=== PATIENT | female | born 1955 | race Caucasian/White ===

== ENCOUNTER 2016-07-15 03:01 | Inpatient (IN) | payer OTHER, MEDICARE ==
[~2016-07-15] VITALS: Ht 167.6 cm; Wt 105.7 kg
[~2016-07-15 03:01] MED LIST: ADDERALL 10 MG10 MG PO; ADDERALL XR 3030 MG PO; COZAAR50 M1 PO; DEXILANT60 M1 PO; DILAUDID2 M1 PO; KLONOPIN0.5 M1 PO; SYNTHROID137 MCG PO; TOPROL XL50 M1 PO; VITAMIN D33000 UNIT PO; WELLBUTRIN SR150 M1 PO; WELLBUTRIN XL300 M2 PO
--- NOTE | 2016-07-15 12:44 | Patient Discharge Instructions ---
Discharge Instructions General Discharge Information You were seen/treated for: Left knee pain You had these procedures: 07/15/16 left total knee arthroplasty Watch for these problems: Redness, swelling, fever, signs of infection. Uncontrolled pain, Excessive bleeding. Decreased range of motion or unable to bear weight. Chest pain, shortness of breath. Call Surgeon to remove: Jaden Do not soak the wound: Yes No bath, but you may shower: Yes Other wound care: Daily dry dressing changes or as needed Diet Continue normal diet: Yes Activity Activity Self Limited: Yes Activity Limited to: Weight bear as tolerated Additional ACTIVITY Info: Daily physical therapy Acute Coronary Syndrome Inclusion Criteria At DC or during hospital stay patient has or had the following: ACS DIAGNOSIS No Discharge Core Measures Meds if any: Prescribed or Continued at Discharge Meds if any: NOT Prescribed or Continued at Discharge Congestive Heart Failure Inclusion Criteria At DC or during hospital stay patient has or had the following: CHF DIAGNOSIS No Discharge Core Measures Meds if any: Prescribed or Continued at Discharge Meds if any: NOT Prescribed or Continued at Discharge Cerebrovascular accident Inclusion Criteria At DC or during hospital stay patient has or had the following: CVA/TIA Diagnosis No Discharge Core Measures Meds if any: Prescribed or Continued at Discharge Meds if any: NOT Prescribed or Continued at Discharge Venous thromboembolism Inclusion Criteria VTE Diagnosis No VTE Type NONE VTE Confirmed by (Test) NONE Discharge Core Measures - Per Current guidelines, there needs to be overlap - treatment for the first 5 days of Warfarin therapy. - If discharged on Warfarin prior to 5 days of - overlap therapy, the patient will need to be - assessed for post discharge needs including - *Post discharge parental anticoagulation - *Warfarin and/or parental anticoagulation education - *Follow up date to check INR post discharge At least 5 days overlap therapy as Inpatient No Meds if any: Prescribed or Continued at Discharge Note: Overlap Therapy is Warfarin and Anticoagulant Meds if any: NOT Prescribed or Continued at Discharge
[2016-07-15] MEDS ORDERED: DILAUDID4 M1 PO (13:00)
[2016-07-15] MEDS ORDERED: MIRALAX17 G1 PO (13:00)
[2016-07-15] MEDS ORDERED: COLACE100 M1 PO (13:00)
[2016-07-15] MEDS ORDERED: ASPIRIN325 M2 PO (13:00)
[2016-07-15] MEDS ORDERED: MORPHINE SULFAT15 M3 PO (13:00)
--- NOTE | 2016-07-15 13:01 | Discharge Summary ---
See Addendum Visit Information Visit Dates Admission Date: 07/15/16 Discharge Date: 07/18/16 Hospital Course Course Attending Physician: ALTAF FRANK MD Primary Care Physician: DAINEL MARTIN MD Hospital Course: Patient admitted to floor following procedure below. Patient ambulated with PT upon arrival to the floor. Patient continued to progress well. Upon discharge patient is afebrile, tolerating diet, pain controlled, ambulating well with rolling walker and PT. Complications: None Allergies: Coded Allergies: ampicillin (Severe, ANAPHYLAXIS 07/10/16) scallops (? 07/10/16) Significant Procedures: 07/15/16 left total knee arthroplasty Disposition Summary Disposition Principal Diagnosis: Left knee pain, secondary to primary unilateral left knee osteoarthritis Additional Diagnosis: None Discharge Disposition: home health services Discharge Instructions General Discharge Information Code Status: Full Code Patient's Diet: Resume normal diet Patient's Activity: Weight-bearing as tolerated Daily physical therapy Follow-Up Instructions/Appts: Call office to schedule/confirm appointment Follow-up with Dr. Frank in 6 weeks. Call the office with any concerns of fever greater than 101.5. Large amounts of discharge or drainage from the wound or inability to bear weight on your operative side. The visiting nurse will remove your sutures/jeremiah in approximately 2 weeks' time if applicable You may weight-bear as tolerated. Activity as tolerated. Range of motion as tolerated. Do not put pillows behind the knee, use a pillow under the heel to ensure your are in full knee extension. Keep the dressing dry as possible, you may shower with the dressing in place however, do not take a bath or submerge the wound in water as this will increase your chance of infection. Change the dressings after the shower. You may use dry gauze and tape or large Band-Aids Do not apply any ointments to the wound. Due to a risk of blood clots you'll need to be on aspirin 325 mg twice a day for the next 4 weeks. Take pain medication as directed. Apply ice as needed for 20 minutes every hour for the first few days. Please take Colace and/or MiraLAX [id number] to avoid constipation while you're on narcotic pain medication. Medications at Discharge Discharge Medications: Stop taking the following medications: Hydromorphone HCl (Dilaudid) 2 MG TABLET ORAL 4 times daily as needed Continue taking these medications: Bupropion HCl (Wellbutrin XL) 300 MG TAB.ER.24H 1 Tablet ORAL Every Morning Bupropion HCl (Wellbutrin Sr) 150 MG TABLET.ER 1 Tablet ORAL DAILY Instructions: PART OF 450 MG DOSE Clonazepam (Klonopin) 0.5 MG TABLET 1 Tablet ORAL 2 x Daily as needed as needed for PTSD Dextroamphetamine/Amphetamine (Adderall XR 30 MG Capsule) 30 MG CAP.ER.24H 1 Capsule ORAL Every Morning Dextroamphetamine/Amphetamine (Adderall 10 MG Tablet) 10 MG TABLET 1 Tablet ORAL DAILY as needed for ADD Levothyroxine Sodium (Synthroid) 137 MCG TABLET 1 Tablet ORAL DAILY Dexlansoprazole (Dexilant) 60 MG CAP.DRAshleyBP 1 Capsule ORAL DAILY Instructions: TAKES AT HS Metoprolol Succ XL (Toprol Xl) 50 MG TAB 1 Tablet ORAL TWICE DAILY Losartan Potassium (Cozaar) 50 MG TABLET 1 Tablet ORAL DAILY Cholecalciferol (Vitamin D3) (Vitamin D3) 3,000 UNIT TABLET 1 Tablet ORAL DAILY Gabapentin (Neurontin) 300 MG CAPSULE 1 Capsule ORAL THREE TIMES DAILY Start taking the following new medications: Aspirin (Aspirin*) 325 MG TABLET 1 Tablet ORAL TWICE DAILY Qty = 60 No Refills Docusate Sodium (Colace) 100 MG CAPSULE 1 Capsule ORAL TWICE DAILY as needed for CONSTIPATION Qty = 30 No Refills Polyethylene Glycol 3350 (Miralax) 17 GRAM POWD.PACK 1 Packet ORAL DAILY as needed for CONSTIPATION Qty = 14 No Refills Instructions: dissolve in water Hydromorphone HCl (Dilaudid) 4 MG TABLET 1-2 Tablet ORAL Q4-6P as needed for PAIN Qty = 36 No Refills Morphine Sulfate (Morphine Sulfate ER) 15 MG TABLET.ER 1 Tablet ORAL TWICE DAILY Qty = 5 No Refills Copies To: VERONICA JOSEPH,DANIEL Vanegas
--- NOTE | 2016-07-15 13:02 | Admission Core Measures ---
Admission Meds I reviewed the following Meds: Current Medications Sig/Wil Start time Last Medication Dose Stop Time Status Admin Acetaminophen 975 MG ONCE 07/15 0000 NR (Tylenol) 07/15 2358 Bupropion HCl 150 MG DAILY 07/16 1000 UNVr (Wellbutrin SR) Bupropion HCl 300 MG QAM 07/16 1000 UNVr (Wellbutrin XL) Clonazepam 0.5 MG BID PRN 07/15 1300 AC (KlonoPIN) 07/22 1259 Levothyroxine Sodium 0.137 MG DAILY 07/16 1000 AC (Synthroid) Losartan Potassium 50 MG DAILY 07/16 1000 AC (Cozaar) Methylphenidate HCl 10 MG TIDAC 07/15 1700 AC (Ritalin) Metoprolol Succinate 50 MG BID 07/15 2200 AC (Toprol Xl) Omeprazole 40 MG DAILY AC 07/16 0700 AC (Prilosec) Oxycodone HCl 10 MG ONCE 07/15 0000 NR (Roxicodone) 07/15 2358 Vancomycin HCl 1,500 MG ONCE 07/15 0000 NR Dextrose/Water 500 ML 07/15 2358 (D5W) Acute Coronary Syndrome Inclusion Criteria ACS Diagnosis No Inpatient Core Measures LDL Reminder: If No, please order W/I first 24hr of stay Congestive Heart Failure Inclusion Criteria CHF Diagnosis No Cerebrovascular accident Inclusion Criteria CVA/TIA Diagnosis No Inpatient Core Measures Bedside Swallow Eval Reminder: If BSE failed, place ST order Antithrombotic Reminder: Order Antithrombotic Medication by end of day 2 Antithrombotic Reminder: Document Reason Antithrombotic Not ordered by end of day 2 AFIB/Flutter Reminder: If Present, add to problem list AFIB/Flutter Reminder: Order Anticoag Medication for pts with AFIB/Flutter Atherosclerosis Reminder: If Present, add to problem list LDL Reminder: If No, please order W/I first 24hr of stay PT Order Reminder: If No, please order Venous thromboembolism Inpatient Core Measures VTE Risk Factors: Age > 40, Obesity, Surgery [facility] prophylaxis d/t No contraindications No VTE Pharm Prophylaxis d/t No contraindications Inclusion Criteria - Per Current guidelines, there needs to be overlap - treatment for the first 5 days of Warfarin therapy. - Parenteral Anticoagulation (IV or SC) needs to be - given along with Warfarin therapy. VTE Diagnosis No VTE Type NONE VTE Confirmed by (Test) NONE Problem List As ranked by this Provider includes Assessment & Plan 1. Status post total left knee replacement HOME MEDS Home Med List Aspirin (Aspirin*) 325 MG TABLET 1 TAB PO BID BLOOD THINNER Bupropion HCl (Wellbutrin XL) 300 MG TAB.ER.24H 1 TAB PO QAM DEPRESSION ( Reported) Bupropion HCl (Wellbutrin Sr) 150 MG TABLET.ER 1 TAB PO DAILY DEPRESSION ( Reported) Cholecalciferol (Vitamin D3) (Vitamin D3) 3,000 UNIT TABLET 1 TAB PO DAILY PTOPHO (Reported) Clonazepam (Klonopin) 0.5 MG TABLET 1 TAB PO BIDP PRN PTSD (Reported) Dexlansoprazole (Dexilant) 60 MG CAP.DR.BP 1 CAP PO DAILY GERD (Reported) Dextroamphetamine/Amphetamine (Adderall XR 30 MG Capsule) 30 MG CAP.ER.24H 1 CAP PO QAM ADD (Reported) Dextroamphetamine/Amphetamine (Adderall 10 MG Tablet) 10 MG TABLET 1 TAB PO DAILY PRN ADD (Reported) Docusate Sodium (Colace) 100 MG CAPSULE 1 CAP PO BID PRN CONSTIPATION Hydromorphone HCl (Dilaudid) 2 MG TABLET 1 TAB PO 4XDP PAIN (Reported) Hydromorphone HCl (Dilaudid) 4 MG TABLET 1-2 TAB PO Q4-6P PRN PAIN Levothyroxine Sodium (Synthroid) 137 MCG TABLET 1 TAB PO DAILY HYPOTHYROID ( Reported) Losartan Potassium (Cozaar) 50 MG TABLET 1 TAB PO DAILY HTN (Reported) Metoprolol Succ XL (Toprol Xl) 50 MG TAB 1 TAB PO BID HTN (Reported) Morphine Sulfate (Morphine Sulfate ER) 15 MG TABLET.ER 1 TAB PO BID PAIN Polyethylene Glycol 3350 (Miralax) 17 GRAM POWD.PACK 1 PAC PO DAILY PRN CONSTIPATION
--- NOTE | 2016-07-15 17:26 | Operative Report ---
Operative/Inv Procedure Report Surgery Date: 07/15/16 Name of Procedure: Left total knee replacement Pre-Operative Diagnosis: Primary left knee DJD Post-Operative Diagnosis: Same Estimated Blood Loss: 50ml to 100ml Surgeon/Private Client Advisor: MONIKA JOSEPH,ALTAF Roche Anesthesia: block Operative/Procedure Note Note: Description of Procedure: The patient was taken to the operating room and positively identified. After induction of spinal anesthesia and administration of appropriate pre-operative antibiotics, the patient was positioned supine on the operating room table and all bony prominences were well padded. A well-padded pneumatic tourniquet was placed on the left upper thigh. After performing a surgical timeout, the left lower extremity was prepped and draped in the usual sterile fashion. After exsanguination with Esmarch the tourniquet was inflated to 250mm of mercury. A standard medial parapatellar approach was made to the knee. This was carried down through skin and subcutaneous tissue to the level of the fascia. Meticulous hemostasis was maintained with Bovie electrocautery. The extensor mechanism and patellar retinaculum were opened sharply and the patella was everted. The infrapatellar fat was resected in order to improve exposure. Osteophytes were trimmed from the patella and femoral condyles and the patella was re-everted and tucked laterally. A medial release was performed and the cruciate ligaments were resected. The tibia was then subluxed anteriorly. Utilizing the appropriate extra-medullary guide, the proximal tibia was trimmed perpendicular to the long axis of the tibial shaft. Attention was then turned to the femur. After opening the medullary canal, the distal femoral cut was made in 6 degrees of valgus utilizing the appropriate intra-medullary guide. The extension gap was checked and found to be appropriate. The femur was then sized and the remainder of the femoral cuts were made with a size 3 4-in-1 femoral cutting guide. The flexion gap was checked and found to be symmetric and appropriate. The knee was then trialed with a size 3 femoral component, a size 3 tibial component and a size 13 mm polyethylene insert. The patella was trimmed to accept an A 32 patella. This yielded excellent range of motion, stability and patellar tracking. All trial components were removed and the knee was copiously irrigated with sterile saline. All components were cemented into place with [place] Simplex cement. All the components were of the [employer] knee system of the above stated sizes. The knee was again irrigated after cementation. The extensor mechanism and patellar retinaculum were repaired using interrupted #1 vicryl suture. The skin was re-approximated with 2-0 vicryl and closed with jeremiah. A sterile dressing was applied, the tourniquet was deflated, the patient was awakened and taken to the recovery room in satisfactory condition.
--- NOTE | 2016-07-15 17:47 | PN- Orthopedic ---
Subjective Subjective: POC S/P LEFT TKA COMFORTABLE NOW DENIES CP, SOB, NO N+V ANTERIOR KNEE BLOCK PLACED AND STABLE WITHOUT HEMATOMA Objective Vital Signs and I&Os CV; RRR LUNGS: CLEAR ABD: SOFT, +BS EXT: LEFT LE DRSG DRY +EHL/FHL TINGLEING IN FOOT(SPINAL) NO ROSE Assessment/Plan Assessment/Plan ORTHO STABLE PLAN ASA FOR DVT PROPHYLAXIS DTV @2000 OOB IN AM WITH PT Core Measures/Miscellaneous Venous Thromboembolism VTE Risk Factors: Age > 40, Surgery VTE Contraindications: No Contraindications VTE Diagnosis: No VTE Type: NONE VTE Confirmed by (Test): NONE Beta Shahnaz Is Beta Shahnaz a Home Med? No Antibiotics Is Patient on Antibiotics? Yes
[2016-07-15 21:12] VITALS: BP 136/80
--- NOTE | 2016-07-15 23:00 | NUR ---
PT SAID THAT SHE IS USED TO TAKING NEURONTIN 300MG, PROTONIX, KLONOPIN AND SYNTHROID AT BEDTIME. SURG DYLAN JACKSON CALLED AND GOT ORDERS PLACED PER PT'S REQUEST.
[2016-07-15] MEDS ORDERED: NEURONTIN300 M1 PO (23:01)
[2016-07-16 00:36] VITALS: BP 132/80
[2016-07-16 03:52] VITALS: BP 130/74
--- NOTE | 2016-07-16 07:40 | PN- Orthopedic ---
Subjective Subjective: NAEO. Patient had pain control issues overnight as she states she was only given IV pain meds. Denies numbness/tingling in LLE. Tolerating PO, not n/v. Has not been OOB with PT yet. Denies CP/SOB. Of note On-Q pump was DC'd at 5am this morning even though there were no issues with it and it was suppose to stay in place for 2 days. Objective Vital Signs and I&Os Vital Signs Date Time Temp Pulse Resp B/P Pulse O2 O2 Flow FiO2 Ox Delivery Rate 07/16 0951 79 130/74 07/16 0951 79 130/74 07/16 0352 98.1 79 20 130/74 96 Room Air 07/16 0036 98.4 76 20 132/80 95 Nasal 2.0L Cannula 07/16 0000 CPAP 07/15 2231 67 136/80 07/15 2112 98.0 67 20 136/80 98 Nasal 2.0L Cannula 07/15 181 98 Nasal 2.0L Cannula Intake & Output 07/16 1600 07/16 0800 07/16 0000 07/15 1600 07/15 0800 07/15 0000 Intake Total 700 400 Output Total 1301 Balance 700 -901 Intake, IV 600 300 Intake, Oral 100 100 Output, Stool 1 Output, Urine 1300 Patient 233 lb Weight Physical Exam: Gen: NAD, Comfortable, A&Ox3 Chest: NRD, breathing comortably on RA. RRR. Abd: soft, NT, ND Ext: Left knee dressing c/d/i. LLE compartments soft. No calve swelling/TTP. NV intact BLE. Current Medications: Current Medications Sig/Wil Start time Last Medication Dose Route Stop Time Status Admin Acetaminophen 650 MG Q4P PRN 07/15 184 AC PO Acetaminophen 975 MG ONCE 07/15 0000 DC PO 07/159 Aspirin 325 MG BID 07/15 2200 AC 07/16 PO 0951 Bupropion HCl 150 MG DAILY 07/16 1000 CAN PO Bupropion HCl 450 MG QAM 07/16 1000 AC 07/16 PO 0951 Clonazepam 1 MG .STK-MED ONE 07/15 2330 DC PO 07/15 233 Clonazepam 0.5 MG BID PRN 07/15 1300 AC 07/15 PO 07/22 1259 2353 Dextrose/Sodium 1,000 ML .[id number] 07/15 1845 DC 07/15 Chloride IV 2000 Docusate Sodium 100 MG DAILY 07/16 1000 AC 07/16 PO 0951 Fentanyl Citrate 100 MCG .STK-MED ONE 07/15 1233 DC IM 07/15 1234 Gabapentin 300 MG TID 07/15 2330 AC 07/16 PO 0951 Hydromorphone HCl 2 MG Q4P PRN 07/15 1845 AC PO Hydromorphone HCl 4 MG Q4P PRN 07/15 1845 AC 07/16 PO 0350 Ketorolac 15 MG Q6P PRN 07/15 1845 AC 07/16 Tromethamine IV 07/18 1839 0952 Levothyroxine Sodium 0.137 MG DAILY 07/16 1000 DC PO Levothyroxine Sodium 0.137 MG DAILY AC 07/16 0700 DC PO Levothyroxine Sodium 0.137 MG AT BEDTIME 07/15 2330 AC 07/15 PO 2353 Losartan Potassium 50 MG DAILY 07/16 1000 AC 07/16 PO 0951 Methylphenidate HCl 10 MG TIDAC 07/15 1700 AC PO Metoprolol Succinate 50 MG BID 07/15 2200 AC 07/16 PO 0951 Midazolam HCl 5 MG .STK-MED ONE 07/15 1233 DC IM 07/15 1234 Morphine Sulfate 2 MG Q3P PRN 07/15 1845 AC 07/16 IV 0602 Omeprazole 40 MG DAILY AC 07/16 0700 CAN PO Ondansetron HCl 4 MG Q6P PRN 07/15 184 AC IV Oxycodone HCl 10 MG .STK-MED ONE 07/15 1222 DC PO 07/15 1223 Oxycodone HCl 10 MG ONCE 07/15 0000 DC PO 07/15 2359 Pantoprazole Sodium 40 MG AT BEDTIME 07/16 2200 DC IV Pantoprazole Sodium 40 MG AT BEDTIME 07/15 2330 AC 07/15 IV 2357 Polyethylene Glycol 17 GM DAILY 07/16 1000 AC 07/16 PO 0950 Ropivacaine 500 ML ONCE ONE 07/15 1345 AC ON-Q Ball 1 BAG INJ 07/17 0724 Tranexamic Acid 2,000 MG .STK-MED ONE 07/15 1233 DC IV 07/15 1234 Vancomycin HCl 1,000 MG ONCE ONE 07/15 1845 DC 07/15 Sodium Chloride 250 ML IV 03/29 1944 2232 Vancomycin HCl 1,500 MG ONCE 07/15 0000 DC Dextrose/Water 500 ML IV 07/15 5531 Results Last 48 Hours of Labs: Laboratory Tests 07/16 0645 Chemistry Sodium (137 - 145 mmol/L) 139 Potassium (3.5 - 5.1 mmol/L) 4.2 Chloride (98 - 107 mmol/L) 103 Carbon Dioxide (22 - 30 mmol/L) 28 Anion Gap (5 - 16) 9 BUN (7 - 17 mg/dL) 15 Creatinine (0.5 - 1.0 mg/dL) 0.9 Estimated GFR (>60 ml/min) > 60 BUN/Creatinine Ratio (7 - 25 %) 16.7 Hematology CBC w Diff NO MAN DIFF REQ WBC (4.8 - 10.8 /CUMM) 9.4 RBC (4.20 - 5.40 /CUMM) 3.57 L Hgb (12.0 - 16.0 G/DL) 11.1 L Hct (37 - 47 %) 32.8 L MCV (81.0 - 99.0 FL) 91.7 MCH (27.0 - 31.0 PG) 31.1 H RDW (11.5 - 14.5 %) 13.4 Plt Count (130 - 400 /CUMM) 284 MPV (7.4 - 10.4 FL) 7.9 Gran % (42.2 - 75.2 %) 88.5 H Lymphocytes % (20.5 - 51.1 %) 7.6 L Monocytes % (1.7 - 9.3 %) 3.8 Eosinophils % (0 - 5 %) 0.1 Basophils % (0.0 - 2.0 %) 0 L Absolute Granulocytes (1.4 - 6.5 /CUMM) 8.4 H Absolute Lymphocytes (1.2 - 3.4 /CUMM) 0.7 L Absolute Monocytes (0.10 - 0.60 /CUMM) 0.4 Absolute Eosinophils (0.0 - 0.7 /CUMM) 0 Absolute Basophils (0.0 - 0.2 /CUMM) 0 PUBS MCHC (33.0 - 37.0 G/DL) 33.9 Assessment/Plan Assessment/Plan 61yo F POD#1 s/p L TKA. AVSS, patient stable. - pain control - PRN zofran - DC IVF - I/O's - bowel regimen - diet as tolerated - OOB with PT, WBAT - plan for STR - ALPS/TEDS - Will d/w attending Core Measures/Miscellaneous Venous Thromboembolism VTE Risk Factors: Age > 40, Surgery VTE Contraindications: No Contraindications VTE Diagnosis: No VTE Type: NONE VTE Confirmed by (Test): NONE Beta Shahnaz Is Beta Shahnaz a Home Med? No Antibiotics Is Patient on Antibiotics? No
[2016-07-16 07:55] LABS: ABSOLUTE BASOPHIL COUNT 0 /CUMM (0.0-0.2); ABSOLUTE EOSINOPHIL COUNT 0 /CUMM (0.0-0.7); ABSOLUTE GRANULOCYTE CT 8.4 /CUMM (1.4-6.5); ABSOLUTE LYMPH COUNT 0.7 /CUMM (1.2-3.4); ABSOLUTE MONOCYTE COUNT 0.4 /CUMM (0.10-0.60); BASOPHIL % 0 % (0.0-2.0); EOSINOPHIL % 0.1 % (0-5); GRANULOCYTE % 88.5 % (42.2-75.2); HEMATOCRIT 32.8 % (37-47); MEAN CORPUSCULAR HGB 31.1 PG (27.0-31.0); MEAN CORPUSCULAR HGB CONC 33.9 G/DL (33.0-37.0); MEAN CORPUSCULAR VOLUME 91.7 FL (81.0-99.0); MEAN PLATELET VOLUME 7.9 FL (7.4-10.4); PLATELET COUNT 284 /CUMM (130-400); RBC DISTRIBUTION WIDTH 13.4 % (11.5-14.5); RED BLOOD CELL CT 3.57 /CUMM (4.20-5.40)
[2016-07-16 09:54] LABS: WHITE BLOOD CELL COUNT 9.4 /CUMM (4.8-10.8)
[2016-07-16 15:50] VITALS: BP 98/60
[2016-07-16 20:12] VITALS: BP 90/50
[2016-07-16 23:04] VITALS: BP 90/50
[2016-07-17 07:33] VITALS: BP 98/52
--- NOTE | 2016-07-17 07:54 | PN- General Surgery ---
Subjective Subjective: No overnight events ,was able to ambulate out of bed with assistance. He has pain on the postoperative incision site. However pain is tolerable. Denies short of breath short of breath, chest pain, nausea and vomiting. Able to tolerate diet. No other complaints. Objective Vital Signs and I&Os Vital Signs Date Time Temp Pulse Resp B/P Pulse O2 O2 Flow FiO2 Ox Delivery Rate 07/17 0733 98.1 67 20 98/52 94 Room Air 07/16 2304 98.7 73 20 90/50 96 Room Air 07/16 2227 90/50 07/16 2012 98.5 79 20 90/50 94 Room Air 07/16 1600 96 Room Air 07/16 1550 97.9 73 20 98/60 96 07/16 1125 Room Air 07/16 1101 Room Air 07/16 0951 79 130/74 07/16 0951 79 130/74 07/16 0800 Room Air Intake & Output 07/17 0800 07/17 0000 07/16 1600 07/16 0800 07/16 0000 07/15 1600 Intake Total 480 1380 700 400 Output Total 443 317 9755 Balance 480 -250 1180 700 -901 Intake, IV 600 300 Intake, Oral 480 1380 100 100 Number 0 Bowel Movements Output, Stool 1 Output, Urine 540 287 0908 Patient 233 lb Weight Physical Exam: She is alert oriented 3, appears in no distress, very pleasant lady and resting comfortably and in bed. Lungs essentially clear to auscultation bilaterally, heart rate was regular rate and rhythm, Abdomen was soft nondistended nontender no rebound or guarding. Left lower extremity; The postoperative incision site dressing was clean dry and intact. The dressing was taken out, and incision site appears to be clean dry and intact with stable. There is no erythema or drainage at incision site. She has an apical left ankle cast. Cast was placed secondary to her recent trauma prior to admission to the left ankle. Current Medications: Current Medications Sig/Wil Start time Last Medication Dose Route Stop Time Status Admin Acetaminophen 650 MG Q4P PRN 07/15 1845 AC PO Aspirin 325 MG BID 07/15 2200 AC 07/16 PO 2214 Bupropion HCl 450 MG QAM 07/16 1000 AC 07/16 PO 0951 Clonazepam 0.5 MG BID PRN 07/15 1300 AC 07/15 PO 07/22 1259 2353 Docusate Sodium 100 MG DAILY 07/16 1000 AC 07/16 PO 0951 Gabapentin 300 MG TID 07/15 2330 AC 07/16 PO 2214 Hydromorphone HCl 2 MG Q4P PRN 07/15 1845 AC PO Hydromorphone HCl 4 MG Q4P PRN 07/15 1845 AC 07/17 PO 0346 Ketorolac 15 MG .STK-MED ONE 07/16 1526 DC Tromethamine IM 07/16 1527 Ketorolac 30 MG .STK-MED ONE 07/16 1522 DC Tromethamine IM 07/16 1523 Ketorolac 15 MG Q6P PRN 07/15 1845 AC 07/17 Tromethamine IV 07/18 1839 0536 Levothyroxine Sodium 0.137 MG AT BEDTIME 07/15 2330 AC 07/16 PO 2215 Losartan Potassium 50 MG DAILY 07/16 1000 AC 07/16 PO 0951 Methylphenidate HCl 10 MG TIDAC 07/15 1700 AC PO Metoprolol Succinate 50 MG BID 07/15 2200 AC 07/16 PO 0951 Morphine Sulfate 2 MG Q3P PRN 07/15 1845 AC 07/16 IV 0602 Ondansetron HCl 4 MG Q6P PRN 07/15 184 AC IV Pantoprazole Sodium 40 MG AT BEDTIME 07/15 2330 AC 07/16 IV 2214 Patient Medication 1 ED .STK-MED ONE 07/16 1414 DC Teaching ED 07/16 1415 Polyethylene Glycol 17 GM DAILY 07/16 1000 AC 07/16 PO 0950 Ropivacaine 500 ML ONCE ONE 07/15 1345 DC ON-Q Ball 1 BAG INJ 07/17 0724 Results Last 48 Hours of Labs: Laboratory Tests 07/16 0645 Chemistry Sodium (137 - 145 mmol/L) 139 Potassium (3.5 - 5.1 mmol/L) 4.2 Chloride (98 - 107 mmol/L) 103 Carbon Dioxide (22 - 30 mmol/L) 28 Anion Gap (5 - 16) 9 BUN (7 - 17 mg/dL) 15 Creatinine (0.5 - 1.0 mg/dL) 0.9 Estimated GFR (>60 ml/min) > 60 BUN/Creatinine Ratio (7 - 25 %) 16.7 Hematology CBC w Diff NO MAN DIFF REQ WBC (4.8 - 10.8 /CUMM) 9.4 RBC (4.20 - 5.40 /CUMM) 3.57 L Hgb (12.0 - 16.0 G/DL) 11.1 L Hct (37 - 47 %) 32.8 L MCV (81.0 - 99.0 FL) 91.7 MCH (27.0 - 31.0 PG) 31.1 H RDW (11.5 - 14.5 %) 13.4 Plt Count (130 - 400 /CUMM) 284 MPV (7.4 - 10.4 FL) 7.9 Gran % (42.2 - 75.2 %) 88.5 H Lymphocytes % (20.5 - 51.1 %) 7.6 L Monocytes % (1.7 - 9.3 %) 3.8 Eosinophils % (0 - 5 %) 0.1 Basophils % (0.0 - 2.0 %) 0 L Absolute Granulocytes (1.4 - 6.5 /CUMM) 8.4 H Absolute Lymphocytes (1.2 - 3.4 /CUMM) 0.7 L Absolute Monocytes (0.10 - 0.60 /CUMM) 0.4 Absolute Eosinophils (0.0 - 0.7 /CUMM) 0 Absolute Basophils (0.0 - 0.2 /CUMM) 0 PUBS MCHC (33.0 - 37.0 G/DL) 33.9 Assessment/Plan Assessment/Plan 61-year-old female status post left total knee replacement. Postop day 2 patient is doing overall well except for postoperative pain. We'll continue to monitor for pain control and will continue the physical therapy and anticipated discharge to short-term rehabilitation. Will discuss with case reviewer about dispo planning. Core Measures/Miscellaneous Venous Thromboembolism VTE Risk Factors: Age > 40, Surgery VTE Contraindications: No Contraindications VTE Diagnosis: No VTE Type: NONE VTE Confirmed by (Test): NONE Beta Shahnaz Is Beta Shahnaz a Home Med? No Antibiotics Is Patient on Antibiotics? No
[2016-07-17 14:29] VITALS: BP 100/90
[2016-07-17 22:00] VITALS: BP 118/68
[2016-07-18 07:22] VITALS: BP 90/54
--- NOTE | 2016-07-18 09:03 | PN- Orthopedic ---
Subjective Subjective: Patient reports pain is under better control. Denies chest pain, shortness of breath and difficulty breathing. Denies nausea and vomitting. Has moved her bowels. Objective Vital Signs and I&Os Vital Signs Date Time Temp Pulse Resp B/P Pulse O2 O2 Flow FiO2 Ox Delivery Rate 07/18 0722 98.3 81 20 90/54 95 Room Air 07/17 2200 97.8 87 16 118/68 95 Room Air 07/17 2042 97.8 87 16 118/68 07/17 1429 98.6 79 20 100/90 94 Room Air Intake & Output 07/18 1600 07/18 0800 07/18 0000 07/17 1600 07/17 0800 07/17 0000 Intake Total 120 480 600 480 Output Total 250 Balance 120 480 600 480 -250 Intake, Oral 120 480 600 480 Number 1 Bowel Movements Output, Urine 250 Physical Exam: General: Alert and oriented x3, no acute distress Cardiac: RRR, s1s2 Pulmonary: CTA bilaterally Abdomen: Obese, non-distended Extremities: Moves all extremities, distal sensation intact. Skin warm and well perfused. LEft ankle swelling due to avulsion fracture, bilateral calves soft and non-tender Surgical site: Left knee, dressing dry and intact Assessment/Plan Assessment/Plan This is a 61 year old female, POD 3, s/p left tkr, doing well -Plan for discharge to snf today -Continue current pain regimen -OOB, wbat -Continue diet as tolerated -Asa 325 bid for dvt ppx Core Measures/Miscellaneous Venous Thromboembolism VTE Risk Factors: Age > 40, Surgery VTE Contraindications: No Contraindications VTE Diagnosis: No VTE Type: NONE VTE Confirmed by (Test): NONE Beta Shahnaz Is Beta Shahnaz a Home Med? No Antibiotics Is Patient on Antibiotics? No
--- NOTE | 2016-07-18 09:58 | NUR ---
HELD PT LOSARTAN AND METOPROLOL FOR BP OF 90/54, DYLAN ROBLES AWARE. WILL CONTINUE TO MONITOR.
[2016-07-18 09:59] VITALS: BP 90/54
== END 2016-07-18 10:50 | DRG 470 ==
LOC: ENRESERVTM → ENRESERVDT → SDA 03:01 → 2NA 03:01 → ENPENDDIS 03:01 → 2NA 18:11
PROVIDERS: Physician Assistant Surgical; ADMIT Orthopaedic Surgery
PROC: 0SRD0J9 Replacement of Left Knee Joint with Synthetic Substitute, Cemented, Open Approach (ICD-10-PCS; principal; 2016-07-15)
DX: M17.12 Unilateral primary osteoarthritis, left knee (principal); M35.00 Sjogren syndrome, unspecified; I10 Essential (primary) hypertension; F43.10 Post-traumatic stress disorder, unspecified; F41.8 Other specified anxiety disorders; K21.9 Gastro-esophageal reflux disease without esophagitis; E03.9 Hypothyroidism, unspecified; Z85.42 Personal history of malignant neoplasm of other parts of uterus; Z85.828 Personal history of other malignant neoplasm of skin
CPT/HCPCS: 2NASP; 36415; 82436; 88305; 97110-GO; 97116-GO; 97162-GP; 97530-GO; C1713; J1885; J2405; J2795; J3370; J7040; J7042; J7060